=== PATIENT | male | born 1930 | race African-American/Black ===

== ENCOUNTER 2019-01-26 13:20 | Emergency (ER) | payer MEDICARE ==
--- NOTE | 2019-01-26 14:27 | EKG REPORT ---
SEVERITY:- ABNORMAL ECG - SINUS BRADYCARDIA RBBB AND LAFB : Confirmed by: Sohan Mason MD 26-Jan-2019 14:26:41
[2019-01-26 14:29] LABS: APPEARANCE,URINE CLEAR; BILIRUBIN,URINE NEGATIVE (NEGATIVE); COLOR,URINE YELLOW; GLUCOSE, URINE NEGATIVE (NEGATIVE); KETONES,URINE NEGATIVE (NEGATIVE); LEUKOCYTE ESTERASE,URINE NEGATIVE (NEGATIVE); NITRITE,URINE NEGATIVE (NEGATIVE); PROTEIN,URINE NEGATIVE (NEGATIVE); UROBILINOGEN,URINE NEGATIVE mg/dL (<2.0)
--- NOTE | 2019-01-26 14:41 | ER Document Report ---
ED General - General Chief Complaint: Shortness Of Breath Stated Complaint: SHORTNESS OF BREATH Time Seen by Provider: 01/26/19 14:23 Primary Care Provider: BRIANNA PIZARRO MD [Primary Care Provider] - Follow up as needed Notes: 88-year-old male who is somewhat poor historian presents emergency department complaining of shortness of breath for the past 2 days, admits a small nonproductive cough that started 2 days ago and complains of orthopnea as well. Denies any chest pain or dyspnea on exertion, denies any history of CHF. Denies any history of asthma or COPD. Admits a small amount of nausea, denies any abd ominal pain, vomiting or diarrhea. Does not know any of his medical history with the exception of a heart attack 6 to 7 years ago that did not require stenting. Knows he takes medication but does not know which medications. TRAVEL OUTSIDE OF THE [place] IN LAST 30 DAYS: No - Related Data Allergies/Adverse Reactions: No Known Allergies Allergy (Verified 01/26/19 19:00) Past Medical History - General Information source: Patient - Social History Smoking Status: Never Smoker Chew tobacco use (# tins/day): No Frequency of alcohol use: None Drug Abuse: None Family History: Reviewed & Not Pertinent Review of Systems - Review of Systems Constitutional: No symptoms reported EENT: No symptoms reported Cardiovascular: See HPI, Orthopnea Respiratory: See HPI, Cough, Short of breath Gastrointestinal: See HPI, Nausea -: Yes All other systems reviewed and negative Physical Exam - Vital signs Vitals: Temp Pulse Resp BP Pulse Ox 97.8 F 59 L 18 109/65 96 01/26/19 13:39 01/26/19 13:39 01/26/19 13:39 01/26/19 13:39 01/26/19 13:39 Interpretation: Normal - Notes Notes: GENERAL: Alert, interacts well. No acute distress. HEAD: Normocephalic, atraumatic EYES: Pupils equal, round and reactive to light, extraocular movements intact. ENT: Oral mucosa moist, tongue midline. NECK: Full range of motion, supple, trachea midline. LUNGS: Clear to auscultation bilaterally, no wheezes, rales or rhonchi, no respiratory distress. HEART: Regular rate and rhythm, no murmurs, gallops, rubs. ABDOMEN: Soft, nontender, nondistended, bowel sounds present in all 4 quadrants. EXTREMITIES: Moves all 4 extremities spontaneously, no edema, radial and dorsalis pedis pulses 2/4 bilaterally. No cyanosis. NEUROLOGICAL: Alert and oriented x3, normal speech, no facial droop. PSYCH: Normal mood, normal affect. SKIN: Warm, Dry, normal turgor, no rashes or lesions noted. Course - Re-evaluation Re-evalutation: 01/26/19 19:06 CBC shows mild anemia with hemoglobin 11.5, CMP unremarkable, troponin negative x2, urinalysis unremarkable. CT of the chest abdomen pelvis was ordered to look for dissection given the fact that the patient feels short of breath and has intermittent abdominal pain and nausea was concern for possible aortic dissection. This is negative for any acute process. Urinalysis unremarkable. EKG is nonischemic. Patient will be ambulated sooner long as he does not become hypoxic he will be discharged to home. I do not have a current cause for his dyspnea. 01/26/19 20:09 Patient ambulated without difficulty, no hypoxia. Eager to go home. Discharged home. Has a follow-up appointment with cardiology on Sunday. - Vital Signs Vital signs: Temp Pulse Resp BP Pulse Ox 97.8 F 59 L 16 149/87 H 97 01/26/19 13:39 01/26/19 13:39 01/26/19 19:01 01/26/19 19:01 01/26/19 14:15 - Laboratory Result Diagrams: 01/26/19 16:35 01/26/19 14:15 Laboratory results interpreted by me: 01/26/19 16:35 RBC 3.86 L Hgb 11.5 L Hct 34.3 L RDW 14.3 H - EKG Interpretation by Me Additional EKG results interpreted by me: 01/26/19 14:41 EKG shows sinus bradycardia at a rate of 55, left anterior hemiblock, rapid R wave progression, no ST segment elevations or depressions, right bundle branch block with T wave inversions in lead III per my interpretation. Discharge - Discharge Clinical Impression: Dyspnea Qualifiers: Dyspnea type: shortness of breath Qualified Code(s): R06.02 - Shortness of breath Condition: Stable Disposition: HOME, SELF-CARE Additional Instructions: I do not know why you are short of breath however today we did not find any sign of lung infection, heart attack, severe anemia or aortic problem. I want you to follow-up with your primary care physician as an outpatient, they would may wish to perform a stress test or other work-up to see why you feel short of breath. Referrals: BRIANNA PIZARRO MD [Primary Care Provider] - Follow up as needed
[2019-01-26 14:44] LABS: ALBUMIN 4.3 g/dL (3.5-5.0); ALKALINE PHOSPHATASE 93 U/L (38-126); ANION GAP 9 (5-19); ASPARTATE AMINO TRANSFERASE 26 U/L (17-59); BILIRUBIN,DIRECT 0.2 mg/dL (0.0-0.4); BILIRUBIN,TOTAL 0.6 mg/dL (0.2-1.3); BLOOD UREA NITROGEN 18 mg/dL (7-20); CALCIUM 9.6 mg/dL (8.4-10.2); CARBON DIOXIDE 26 mmol/L (22-30); CHLORIDE 103 mmol/L (98-107); CREATINE KINASE 127 U/L (55-170); GLUCOSE 99 mg/dL (75-110); POTASSIUM 4.7 mmol/L (3.6-5.0); TOTAL PROTEIN 7.4 g/dL (6.3-8.2)
--- NOTE | 2019-01-26 14:47 | RADIOLOGY REPORT (SQ) ---
EXAM DESCRIPTION: CHEST SINGLE VIEW COMPLETED DATE/TIME: 01/26/2019 2:35 pm REASON FOR STUDY: bed 7 sob COMPARISON: None. EXAM PARAMETERS: NUMBER OF VIEWS: One view. TECHNIQUE: Single frontal radiographic view of the chest acquired. RADIATION DOSE: NA LIMITATIONS: None. FINDINGS: LUNGS AND PLEURA: No opacities, masses or pneumothorax. No pleural effusion. MEDIASTINUM AND HILAR STRUCTURES: No masses. Contour normal. HEART AND VASCULAR STRUCTURES: Heart normal in size. Normal vasculature. BONES: No acute findings. HARDWARE: None in the chest. OTHER: No other significant finding. IMPRESSION: NO ACUTE RADIOGRAPHIC FINDING IN THE CHEST. TECHNICAL DOCUMENTATION: JOB ID: [id number] [employer]- All Rights Reserved Reading location - IP/workstation name: [email or web address]
[2019-01-26 14:56] LABS: CREATINE KINASE MB 1.91 ng/mL (<4.55)
[2019-01-26 14:57] LABS: TROPONIN I < 0.012 ng/mL
--- NOTE | 2019-01-26 16:37 | RADIOLOGY REPORT (SQ) ---
EXAM DESCRIPTION: CTA CHEST; CTA ABDOMEN; CTA PELVIS COMPLETED DATE/TIME: 01/26/2019 4:15 pm; 01/26/2019 4:17 pm REASON FOR STUDY: pain, SOB, r/o dissection COMPARISON: None. TECHNIQUE: CT scan of the chest, abdomen, and pelvis performed with and without intravenous contrast using helical scanning technique with dynamic intravenous contrast injection. Images reviewed with l fredy, soft tissue, and bone windows. Reconstructed coronal and sagittal MPR images reviewed. All image s stored on PACS. Advanced 3D imaging as volume rendering, MIPS, SSD performed? yes All CT scanners at this facility use dose modulation, iterative reconstruction, and/or weight based d osing when appropriate to reduce radiation dose to as low as reasonably achievable (ALARA). [facility]: Dose Right [facility]: CareDose [facility]: Dose Right [facility]: Teradose 4D [facility]: [employer] CONTRAST TYPE AND DOSE: contrast/concentration: Isovue 350.00 mg/ml; Total Contrast Delivered: 100.0 ml; Total Saline Delivered: 90.0 ml RENAL FUNCTION: Serum creatinine = 1.0 RADIATION DOSE: 1164 mGy cm LIMITATIONS: None. FINDINGS: AORTA AND VESSELS: No aneurysm. No dissection. Renal arteries, SMA, celiac without stenosi s. Minimal atherosclerosis. LUNGS: No significant findings. No nodules or infiltrates. HEART AND MEDIASTINUM: Coronary artery calcifications. LIVER: Normal size. No masses or dilated ducts. SPLEEN: Normal size. No focal lesions. PANCREAS: No masses. No significant calcifications. No adjacent inflammation or peripancreatic fluid collections. Pancreatic duct not dilated. GALLBLADDER: No identified stones by CT criteria. No inflammatory changes to suggest cholecystitis. ADRENAL GLANDS: No significant masses or asymmetry. RIGHT KIDNEY AND URETER: No mass, calculi or urinary tract obstruction. LEFT KIDNEY AND URETER: No mass, calculi or urinary tract obstruction. RETROPERITONEUM: No retroperitoneal adenopathy, hemorrhage or masses. BOWEL AND PERITONEAL CAVITY: No masses or inflammatory changes. No free fluid or peritoneal masses. APPENDIX: Not clearly visualized. ABDOMINAL WALL: No masses. No hernias. BONY STRUCTURES: No significant or acute findings. 3-D IMAGING: Confirms the above findings. OTHER: No other significant finding. IMPRESSION: Normal contour and caliber of the aorta. No evidence of dissection, aneurysm, or other acute aortic pathology. Minimal atherosclerosis. TECHNICAL DOCUMENTATION: JOB ID: [id number] Quality ID # [id number]: Final reports with documentation of one or more dose reduction techniques (e.g., Au tomated exposure control, adjustment of the mA and/or kV according to patient size, use of iterative reconstruction technique) 2010 [employer]- All Rights Reserved Reading location - IP/workstation name: [email or web address]
--- NOTE | 2019-01-26 16:37 | RADIOLOGY REPORT (SQ) ---
EXAM DESCRIPTION: CTA CHEST; CTA ABDOMEN; CTA PELVIS COMPLETED DATE/TIME: 01/26/2019 4:15 pm; 01/26/2019 4:17 pm REASON FOR STUDY: pain, SOB, r/o dissection COMPARISON: None. TECHNIQUE: CT scan of the chest, abdomen, and pelvis performed with and without intravenous contrast using helical scanning technique with dynamic intravenous contrast injection. Images reviewed with l fredy, soft tissue, and bone windows. Reconstructed coronal and sagittal MPR images reviewed. All image s stored on PACS. Advanced 3D imaging as volume rendering, MIPS, SSD performed? yes All CT scanners at this facility use dose modulation, iterative reconstruction, and/or weight based d osing when appropriate to reduce radiation dose to as low as reasonably achievable (ALARA). [facility]: Dose Right [facility]: CareDose [facility]: Dose Right [facility]: Teradose 4D [facility]: [employer] CONTRAST TYPE AND DOSE: contrast/concentration: Isovue 350.00 mg/ml; Total Contrast Delivered: 100.0 ml; Total Saline Delivered: 90.0 ml RENAL FUNCTION: Serum creatinine = 1.0 RADIATION DOSE: 1164 mGy cm LIMITATIONS: None. FINDINGS: AORTA AND VESSELS: No aneurysm. No dissection. Renal arteries, SMA, celiac without stenosi s. Minimal atherosclerosis. LUNGS: No significant findings. No nodules or infiltrates. HEART AND MEDIASTINUM: Coronary artery calcifications. LIVER: Normal size. No masses or dilated ducts. SPLEEN: Normal size. No focal lesions. PANCREAS: No masses. No significant calcifications. No adjacent inflammation or peripancreatic fluid collections. Pancreatic duct not dilated. GALLBLADDER: No identified stones by CT criteria. No inflammatory changes to suggest cholecystitis. ADRENAL GLANDS: No significant masses or asymmetry. RIGHT KIDNEY AND URETER: No mass, calculi or urinary tract obstruction. LEFT KIDNEY AND URETER: No mass, calculi or urinary tract obstruction. RETROPERITONEUM: No retroperitoneal adenopathy, hemorrhage or masses. BOWEL AND PERITONEAL CAVITY: No masses or inflammatory changes. No free fluid or peritoneal masses. APPENDIX: Not clearly visualized. ABDOMINAL WALL: No masses. No hernias. BONY STRUCTURES: No significant or acute findings. 3-D IMAGING: Confirms the above findings. OTHER: No other significant finding. IMPRESSION: Normal contour and caliber of the aorta. No evidence of dissection, aneurysm, or other acute aortic pathology. Minimal atherosclerosis. TECHNICAL DOCUMENTATION: JOB ID: [id number] Quality ID # [id number]: Final reports with documentation of one or more dose reduction techniques (e.g., Au tomated exposure control, adjustment of the mA and/or kV according to patient size, use of iterative reconstruction technique) 2010 [employer]- All Rights Reserved Reading location - IP/workstation name: [email or web address]
--- NOTE | 2019-01-26 16:37 | RADIOLOGY REPORT (SQ) ---
EXAM DESCRIPTION: CTA CHEST; CTA ABDOMEN; CTA PELVIS COMPLETED DATE/TIME: 01/26/2019 4:15 pm; 01/26/2019 4:17 pm REASON FOR STUDY: pain, SOB, r/o dissection COMPARISON: None. TECHNIQUE: CT scan of the chest, abdomen, and pelvis performed with and without intravenous contrast using helical scanning technique with dynamic intravenous contrast injection. Images reviewed with l fredy, soft tissue, and bone windows. Reconstructed coronal and sagittal MPR images reviewed. All image s stored on PACS. Advanced 3D imaging as volume rendering, MIPS, SSD performed? yes All CT scanners at this facility use dose modulation, iterative reconstruction, and/or weight based d osing when appropriate to reduce radiation dose to as low as reasonably achievable (ALARA). [facility]: Dose Right [facility]: CareDose [facility]: Dose Right [facility]: Teradose 4D [facility]: [employer] CONTRAST TYPE AND DOSE: contrast/concentration: Isovue 350.00 mg/ml; Total Contrast Delivered: 100.0 ml; Total Saline Delivered: 90.0 ml RENAL FUNCTION: Serum creatinine = 1.0 RADIATION DOSE: 1164 mGy cm LIMITATIONS: None. FINDINGS: AORTA AND VESSELS: No aneurysm. No dissection. Renal arteries, SMA, celiac without stenosi s. Minimal atherosclerosis. LUNGS: No significant findings. No nodules or infiltrates. HEART AND MEDIASTINUM: Coronary artery calcifications. LIVER: Normal size. No masses or dilated ducts. SPLEEN: Normal size. No focal lesions. PANCREAS: No masses. No significant calcifications. No adjacent inflammation or peripancreatic fluid collections. Pancreatic duct not dilated. GALLBLADDER: No identified stones by CT criteria. No inflammatory changes to suggest cholecystitis. ADRENAL GLANDS: No significant masses or asymmetry. RIGHT KIDNEY AND URETER: No mass, calculi or urinary tract obstruction. LEFT KIDNEY AND URETER: No mass, calculi or urinary tract obstruction. RETROPERITONEUM: No retroperitoneal adenopathy, hemorrhage or masses. BOWEL AND PERITONEAL CAVITY: No masses or inflammatory changes. No free fluid or peritoneal masses. APPENDIX: Not clearly visualized. ABDOMINAL WALL: No masses. No hernias. BONY STRUCTURES: No significant or acute findings. 3-D IMAGING: Confirms the above findings. OTHER: No other significant finding. IMPRESSION: Normal contour and caliber of the aorta. No evidence of dissection, aneurysm, or other acute aortic pathology. Minimal atherosclerosis. TECHNICAL DOCUMENTATION: JOB ID: [id number] Quality ID # [id number]: Final reports with documentation of one or more dose reduction techniques (e.g., Au tomated exposure control, adjustment of the mA and/or kV according to patient size, use of iterative reconstruction technique) 2010 [employer]- All Rights Reserved Reading location - IP/workstation name: [email or web address]
[2019-01-26 16:50] LABS: ABSOLUTE EOSINOPHILS # (AUTO) 0.1 10^3/uL (0.0-0.6); ABSOLUTE LYMPHOCYTES (AUTO) 1.2 10^3/uL (0.5-4.7); ABSOLUTE MONOCYTES (AUTO) 0.5 10^3/uL (0.1-1.4); ABSOLUTE NEUT (AUTO) 2.7 10^3/uL (1.7-8.2); BASOPHILS % (AUTO) 1.1 % (0-2); EOSINOPHILS % (AUTO) 2.6 % (0-6); HEMATOCRIT 34.3 % (37.9-51.0); HEMOGLOBIN 11.5 g/dL (13.5-17.0); LYMPHOCYTES % (AUTO) 26.1 % (13-45); MEAN CORPUSCULAR HEMOGLOBIN 29.7 pg (27.0-33.4); MEAN CORPUSCULAR HGB CONC 33.5 g/dL (32.0-36.0); MEAN CORPUSCULAR VOLUME 89 fl (80-97); MONOCYTES % (AUTO) 11.2 % (3-13); RED BLOOD COUNT 3.86 10^6/uL (4.35-5.55); RED CELL DISTRIBUTION WIDTH 14.3 % (11.5-14.0); TOTAL CELLS COUNTED % (AUTO) 100 %; WHITE BLOOD COUNT 4.6 10^3/uL (4.0-10.5)
[2019-01-26 17:05] LABS: PLATELET COUNT 156 10^3/uL (150-450)
[2019-01-26 20:22] VITALS: BP 141/77
== END 2019-01-26 20:21 | disposition home or self-care (01) ==
LOC: ER 13:20
DX: R06.02 Shortness of breath (principal); R05 Cough; R06.01 Orthopnea; R11.0 Nausea; D64.9 Anemia, unspecified; R10.9 Unspecified abdominal pain; R00.1 Bradycardia, unspecified; I45.10 Unspecified right bundle-branch block; I25.2 Old myocardial infarction; Z79.899 Other long term (current) drug therapy
CPT/HCPCS: 36415; 71045; 71275; 72191; 74175; 80053; 81001; 82550; 82553; 83690; 83880; 84484; 85025; 93005; 93010; 99285